=== PATIENT | male | born 2000 ===

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

== ENCOUNTER 2018-03-08 08:12 | Emergency (ER) | payer OTHER, MEDICAID ==
[2018-03-08 08:19] VITALS: TEMP 98.9
[2018-03-08 10:36] VITALS: BP 118/67; PULSE 90; RESP 18; O2SAT 98
--- NOTE | 2018-03-08 11:17 | RAD ---
PROCEDURE: Right middle finger radiographs. HISTORY: r/o fx COMPARISON: None. TECHNIQUE: AP radiograph of the right hand, as well as spot oblique and lateral images of right middle finger were obtained. FINDINGS: RIGHT MIDDLE FINGER: Right middle finger normal, without fracture of focal lesion. Remainder of the right hand (as seen on the AP view) grossly unremarkable. JOINTS: Normal. SOFT TISSUES: Normal. OTHER FINDINGS: None. IMPRESSION: Unremarkable right middle finger radiographs.
--- NOTE | 2018-03-08 11:45 | C.PDOC ---
History Of Present Illness 18 y/o male presents to the ER complaining of right 3rd finger pain which has been present since yesterday. Patient states that he was grabbing an object at work when he jammed his finger. Patient reports that he has a slight decrease in ROM in his finger. Denies having numbness and other complaints. Of note, patient is right-handed. Chief Complaint (Nursing): Finger,Hand,&Wrist History Per: Patient History/Exam Limitations: no limitations Onset/Duration Of Symptoms: Days Current Symptoms Are (Timing): Still Present Severity: Moderate Past Medical History Reviewed: Historical Data, Nursing Documentation, Vital Signs Vital Signs: Last Vital Signs Temp 98.9 F 03/08/18 08:18 Pulse 90 03/08/18 10:35 Resp 18 03/08/18 10:35 BP 118/67 03/08/18 10:35 Pulse Ox 98 03/08/18 11:54 - Medical History PMH: No Chronic Diseases Surgical History: No Surg Hx Family History: States: No Known Family Hx - Social History Hx Alcohol Use: No Hx Substance Use: No - Immunization History Hx Tetanus Toxoid Vaccination: No Hx Influenza Vaccination: No Hx Pneumococcal Vaccination: No Review Of Systems Except As Marked, All Systems Reviewed And Found Negative. Musculoskeletal: Positive for: Hand Pain (right 3rd finger pain) Neurological: Negative for: Numbness Physical Exam - Physical Exam Appears: Non-toxic, No Acute Distress Skin: Normal Color, Warm, Dry Head: Atraumatic, Normacephalic Eye(s): bilateral: Normal Inspection Nose: Normal Oral Mucosa: Moist Neck: Supple Chest: Symmetrical Cardiovascular: Rhythm Regular Respiratory: Normal Breath Sounds, No Rales, No Rhonchi, No Wheezing Extremity: Normal ROM, Tenderness (tenderness to medial aspect of PIP joint of right 3rd finger ), No Swelling Neurological/Psych: Oriented x3, Normal Speech ED Course And Treatment O2 Sat by Pulse Oximetry: 98 (RA) Pulse Ox Interpretation: Normal - Other Rad X- Ray- Right Middle Finger X-Ray: Viewed By Me, Read By Radiologist Interpretation: PROCEDURE: Right middle finger radiographs. HISTORY: r/o fx. COMPARISON: None. TECHNIQUE: AP radiograph of the right hand, as well as spot oblique and lateral images of right middle finger were obtained. FINDINGS : RIGHT MIDDLE FINGER: Right middle finger normal, without fracture of focal lesion. Remainder of the right hand (as seen on the AP view) grossly unremarkable. JOINTS: Normal. SOFT TISSUES: Normal. OTHER FINDINGS: None. IMPRESSION: Unremarkable right middle finger radiographs. Medical Decision Making Medical Decision Making: Plan: -- X- Ray- Right Hand 3rd Digit Updates: X-Ray found to be negative. Patient has been discharged and told to follow up with clinic in 3-5 days. Disposition - Disposition Referrals: [facility] [Outside] [facility] [Outside] Disposition: HOME/ ROUTINE Disposition Time: 10:10 Condition: GOOD Additional Instructions: PRANAV GARCIA, thank you for letting us take care of you today. Your provider was Zach Raymond DO and you were treated for FINGER PAIN. The emergency medical care you received today was directed at your acute symptoms. If you were prescribed any medication, please fill it and take as directed. It may take several days for your symptoms to resolve. Return to the Emergency Department if your symptoms worsen, do not improve, or if you have any other problems. Please contact your doctor or call one of the physicians/clinics you have been referred to that are listed on the Patient Visit Information form that is included in your discharge packet. Bring any paperwork you were given at discharge with you along with any medications you are taking to your follow up visit. Our treatment cannot replace ongoing medical care by a primary care provider outside of the emergency department. Thank you for allowing the [facility] team to be part of your care today. Follow up with our clinic in 3-5 days for outpatient care and follow up. Prescriptions: Ibuprofen [Motrin] 600 mg PO Q6 PRN #20 tab PRN Reason: Pain, Moderate (4-7) Instructions: Finger Sprain (DC) Forms: [employer] (Arabic) - Clinical Impression Clinical Impression: Finger sprain - Scribe Statement The provider has reviewed the documentation as recorded by the Jodyibe Astrid Her Provider Attestation: All medical record entries made by the Scribe were at my direction and personally dictated by me. I have reviewed the chart and agree that the record accurately reflects my personal performance of the history, physical exam, medical decision making, and the department course for this patient. I have also personally directed, reviewed, and agree with the discharge instructions and disposition.
== END 2018-03-08 10:36 | disposition home or self-care (01) ==
LOC: C.ER 08:12
DX: S63.612A Unspecified sprain of right middle finger, initial encounter (principal); W22.8XXA Striking against or struck by other objects, initial encounter; Y92.89 Other specified places as the place of occurrence of the external cause; Y99.0 Civilian activity done for income or pay